=== PATIENT | male | born 1945 | race Two or more races ===

== ENCOUNTER → 2021-11-25 | Emergency (ER) | payer OTHER ==
[~2021-11-25] VITALS: Ht 180.3 cm; Wt 77.1 kg
[~2021-11-25] MED LIST: BYDUREON B2 MG/0.85 SQ; FENOFIBRATE67 MG PO; FOLIC ACID1 MG PO; HUMALOG100 UNIT/1; HUMULIN 70100 UNIT/2 IJ; LISINOPRIL20 MG PO; OMEPRAZOLE MAGN20 MG PO; RENAL-VITE TAB0.8 MG PO; SEROQUEL25 MG PO; SODIUM BIC IV; SYNTHROID100 MCG PO; TOPROL XL50 M1 PO; ZESTRIL10 M1 PO
== END ==
LOC: ER 14:49
DX: E11.65 Type 2 diabetes mellitus with hyperglycemia (principal); E11.22 Type 2 diabetes mellitus with diabetic chronic kidney disease; I12.0 Hypertensive chronic kidney disease with stage 5 chronic kidney disease or end stage renal disease; N18.6 End stage renal disease; Z99.2 Dependence on renal dialysis; Z79.4 Long term (current) use of insulin; E03.9 Hypothyroidism, unspecified; E78.5 Hyperlipidemia, unspecified; D64.9 Anemia, unspecified; Z20.822 Contact with and (suspected) exposure to COVID-19